=== PATIENT | male | born 1990 | race American Indian/Alaskan Native ===

== ENCOUNTER 2019-11-26 20:38 | Emergency (ER) | payer SELFPAY ==
[2019-11-26 20:44] VITALS: BP 122/62
--- NOTE | 2019-11-26 20:53 | Event Note ---
ED Screening Note Date of service: 11/26/19 Time: 20:52 ED Screening Note: 29 y o mal e presents with intermittent prod coughing not resolving x 1 week mom was just hospitalized with pneumonia This initial assessment/diagnostic orders/clinical plan/treatment(s) is/are subject to change based on patients health status, clinical progression and re- assessment by fellow clinical providers in the ED. Further treatment and workup at subsequent clinical providers discretion. Patient/guardian urged not to elope from the ED as their condition may be serious if not clinically assessed and managed. Initial orders include: cxr acc eval
--- NOTE | 2019-11-26 21:22 | XRay Report ---
CHEST 2 VIEWS INDICATION: cough. COMPARISON: None. FINDINGS: Support devices: None. Heart: Within normal limits. Lungs/Pleura: No acute air space or interstitial disease. No significant pleural effusion. IMPRESSION: No acute findings. Signer Name: Jase Mckeon MD Signed: 11/26/2019 9:17 PM Workstation Name: [id number]
--- NOTE | 2019-11-26 23:55 | Emergency Department Report ---
- General Chief Complaint: Upper Respiratory Infection Stated Complaint: DE [place] ROSA, COUGH, CHEST PAIN Time Seen by Provider: 11/26/19 23:38 Source: patient Mode of arrival: Ambulatory Limitations: No Limitations - History of Present Illness Initial Comments: 29-year-old -[place] male smoker presents emergency department complaining of a history of cough congestion with occasional coryza and occasional wheezes. He reports having a yellowish mucus discharge off and on no hemoptysis no hematemesis nor hematochezia. There is no abdominal pain no palpitations no presyncope. It is also management some mild nasal congestion and throat irritation to thinks is secondary to his cough MD Complaint: cough, rhinorrhea -: week(s) (1) Severity: mild Quality: dull Consistency: constant Improves With: nothing Worsens With: nothing Associated Symptoms: rhinorrhea, nasal congestion - Related Data Previous Rx's Medication Instructions Recorded Last Taken Type Albuterol INH(or & Nicu Only) 1 puff IH Q4-6H PRN #1 inha 11/27/19 Unknown Rx [ProAir HFA Inhaler] guaiFENesin/CODEINE [Robitussin AC] 5 ml PO Q6H PRN #120 ml 11/27/19 Unknown Rx predniSONE [Deltasone] 50 mg PO QDAY #5 tab 11/27/19 Unknown Rx Allergies Allergy/AdvReac Type Severity Reaction Status Date / Time No Known Allergies Allergy Verified 11/26/19 20:41 ED Review of Systems ROS: Stated complaint: DE [place] ROSA, COUGH, CHEST PAIN Other details as noted in HPI Comment: All other systems reviewed and negative ED Past Medical Hx - Social History Smoking Status: Current Every Day Smoker Substance Use Type: None - Medications Home Medications: Home Medications Medication Instructions Recorded Confirmed Last Taken Type Albuterol INH(or & Nicu Only) 1 puff IH Q4-6H PRN #1 inha 11/27/19 Unknown Rx [ProAir HFA Inhaler] guaiFENesin/CODEINE [Robitussin AC] 5 ml PO Q6H PRN #120 ml 11/27/19 Unknown Rx predniSONE [Deltasone] 50 mg PO QDAY #5 tab 11/27/19 Unknown Rx ED Physical Exam - General Limitations: No Limitations General appearance: alert, in no apparent distress - Head Head exam: Present: atraumatic, normocephalic - Eye Eye exam: Present: normal appearance, PERRL, EOMI Pupils: Present: normal accommodation - ENT ENT exam: Present: normal exam, normal orophraynx, mucous membranes moist, TM's normal bilaterally - Neck Neck exam: Present: normal inspection, full ROM - Respiratory Respiratory exam: Present: normal lung sounds bilaterally. Absent: respiratory distress - Cardiovascular Cardiovascular Exam: Present: regular rate, normal rhythm. Absent: systolic murmur, diastolic murmur, rubs, gallop - GI/Abdominal GI/Abdominal exam: Present: soft, normal bowel sounds - Rectal Rectal exam: Present: deferred - Extremities Exam Extremities exam: Present: normal inspection - Back Exam Back exam: Present: normal inspection - Neurological Exam Neurological exam: Present: alert, oriented X3 - Psychiatric Psychiatric exam: Present: normal affect, normal mood - Skin Skin exam: Present: warm, dry, intact, normal color. Absent: rash ED Course Vital Signs 11/26/19 20:43 Temperature 97.7 F Pulse Rate 74 Respiratory 16 Rate Blood Pressure 122/62 O2 Sat by Pulse 96 Oximetry ED Medical Decision Making - Radiology Data Radiology results: report reviewed (normal cxr) - Medical Decision Making This patient presents with acute cough, most consistent with uri/ bronchitis. Presentation not consistent with acute bacterial pneumonia, influenza, asthma, transient airway hyperresponsiveness. Presentation not consistent with chronic causes of cough (including GERD, asthma, postnasal discharge, medication side effect, CHF, lung cancer or mass). Plan: CXR, supportive care, reassess Critical care attestation.: If time is entered above; I have spent that time in minutes in the direct care of this critically ill patient, excluding procedure time. ED Disposition Clinical Impression: Cough Disposition: [id number] TO HOME OR SELFCARE Is pt being admited?: No Does the pt Need Aspirin: No Condition: Stable Instructions: Cold Symptoms (ED), Acute Cough (ED), Upper Respiratory Infection (ED)
== END 2019-11-27 00:30 | disposition home or self-care (01) ==
LOC: ED 20:38
DX: R05 Cough (principal); F17.200 Nicotine dependence, unspecified, uncomplicated; Z79.899 Other long term (current) drug therapy
CPT/HCPCS: 71046